=== PATIENT | female | born 1955 | race Caucasian/White ===

== ENCOUNTER → 2019-01-14 | Outpatient (CLI) | payer BC ==
--- NOTE | 2019-01-14 14:58 | Diagnostic Imaging Report ---
EXAM: US ABDOMEN COMPLETE DATE: 01/14/2019 10:50 AM INDICATION: Heartburn COMPARISON: None FINDINGS: Grayscale and color flow Doppler ultrasound of the abdomen was performed. Liver: 17.1 cm span, borderline hepatomegaly. Mildly hyperechoic parenchyma which may be seen with steatosis. No intrahepatic mass or bile duct dilatation. Main portal vein 0.8 cm, nondilated, normal hepatopetal flow. Spleen: 6.3 cm span, no splenomegaly. Biliary: Surgical absence of the gallbladder. Common bile duct 0.4 cm, normal. Pancreas: Visualized portions of the pancreas show no mass or duct dilatation. Right kidney: 9.6 x 4.1 x 4.6 cm. Normal cortical echogenicity. No hydronephrosis or contour deforming mass. Left kidney: 9.8 x 4.4 x 5.4 cm. Normal cortical echogenicity. No hydronephrosis or contour deforming mass. Vessels: Visualized portions of aorta and IVC unremarkable. Ascites: None IMPRESSION: 1. No sonographic evidence for acute abdominal pathology. 2. Borderline hepatomegaly with steatosis. Signed by: Dr. Oniel Wright M.D. on 01/14/2019 2:55 PM
== END ==
LOC: US 10:43
PROVIDERS: ATTEND Internal Medicine Gastroenterology
DX: Z12.11 Encounter for screening for malignant neoplasm of colon (principal); R12 Heartburn; K92.1 Melena; K76.0 Fatty (change of) liver, not elsewhere classified; E66.01 Morbid (severe) obesity due to excess calories; Z71.3 Dietary counseling and surveillance
CPT/HCPCS: 76700

== ENCOUNTER → 2023-04-05 | Outpatient (CLI) | payer MEDICARE | LOC: RAD 14:47 | PROVIDERS: ATTEND Family Medicine | DX: S46.911A Strain of unspecified muscle, fascia and tendon at shoulder and upper arm level, right arm, initial encounter (principal); S39.012A Strain of muscle, fascia and tendon of lower back, initial encounter; R20.2 Paresthesia of skin | CPT/HCPCS: 72100 ==

== ENCOUNTER → 2024-08-27 | Day surgery (SDC) | payer BC, MEDICARE ==
[2024-08-21 10:17] LABS: BASOPHILS # (AUTO) 0.1 (0.0-0.1); BASOPHILS % 0.6 % (0.0-1.0); EOSINOPHILS # (AUTO) 0.2 (0.0-0.4); EOSINOPHILS % 1.6 % (0.0-6.0); HEMATOCRIT 42.3 % (34.2-44.1); HEMOGLOBIN 13.5 g/dL (12.0-16.0); LYMPHOCYTES # (AUTO) 3.3 (1.0-3.2); LYMPHOCYTES % 30.2 % (18.0-39.1); MEAN CORPUSCULAR HEMOGLOBIN 31.9 pg (28-32); MEAN CORPUSCULAR HGB CONC 31.9 g/dL (31-35); MONOCYTES # (AUTO) 0.8 (0.2-0.8); MONOCYTES % 7.1 % (4.4-11.3); NEUTROPHILS # (AUTO) 6.6 (2.1-6.9); NEUTROPHILS % 60.3 % (38.7-80.0); PLATELET COUNT 214 x10e3/uL (140-360); RED BLOOD COUNT 4.23 x10e6/uL (3.6-5.1); RED CELL DISTRIBUTION WIDTH 12.7 % (11.7-14.4); WHITE BLOOD COUNT 10.91 x10e3/uL (4.8-10.8)
[~2024-08-27] MED LIST: ASPIRIN81 MG PO; CALCIUM CARBON500 MG PO; CELEBREX200 MG PO; CRESTOR40 MG PO; FAMOTIDINE20 MG PO; FENTANYL CITRATE/PF 100MCG/2 ML INJ ONE; FERROUS SULFAT325 MG PO; FUROSEMIDE40 MG PO; LIDOCAINE HCL 2% LOCAL INJ 5 ML SDV VIAL INJ ONE; MAGNESIUM OXID400 MG PO; OMEGA 3 1,0001 EACH PO; OMEPRAZOLE40 MG PO; PROPOFOL IV EMULSION 10 MG/ML 20 ML VIAL ONE; PROPOFOL IV EMULSION 10 MG/ML 50 ML VIAL IV ONE; VIT B12 PO; VIT C PO; VIT D3 PO
[2024-08-27] MEDS: LACTATED RINGER'S 1,000 ML ONE (08:01)
[2024-08-27 11:40] VITALS: BP 130/70; PULSE 76; RESP 18; O2SAT 99
== END | disposition home or self-care (01) ==
LOC: OR 10:30
PROVIDERS: ATTEND Internal Medicine Gastroenterology
DX: D50.9 Iron deficiency anemia, unspecified (principal); K29.50 Unspecified chronic gastritis without bleeding; K31.89 Other diseases of stomach and duodenum; K44.9 Diaphragmatic hernia without obstruction or gangrene; K21.9 Gastro-esophageal reflux disease without esophagitis; K57.30 Diverticulosis of large intestine without perforation or abscess without bleeding; K64.8 Other hemorrhoids; I25.10 Atherosclerotic heart disease of native coronary artery without angina pectoris; E66.01 Morbid (severe) obesity due to excess calories; K76.0 Fatty (change of) liver, not elsewhere classified; E78.5 Hyperlipidemia, unspecified; F41.9 Anxiety disorder, unspecified; F32.A Depression, unspecified; Z01.810 Encounter for preprocedural cardiovascular examination; Z01.812 Encounter for preprocedural laboratory examination; Z79.82 Long term (current) use of aspirin; Z79.899 Other long term (current) drug therapy; Z68.41 Body mass index [BMI] 40.0-44.9, adult; Z86.73 Personal history of transient ischemic attack (TIA), and cerebral infarction without residual deficits; Z98.61 Coronary angioplasty status; Z91.048 Other nonmedicinal substance allergy status
CPT/HCPCS: 36415; 43239; 45378; 85025; 88305; 88342; 93005; J2003; J2704 ×2; J3010; J7121